=== PATIENT | female | born 1995 | race Caucasian/White ===

== ENCOUNTER 2016-03-11 16:36 | Emergency (ER) | payer SELFPAY ==
[2016-03-11 17:01] VITALS: BP 125/86; PULSE 85; RESP 16; TEMP 98.1; O2SAT 96
== END 2016-03-11 17:01 | disposition left against medical advice (07) ==
DX: Z53.21 Procedure and treatment not carried out due to patient leaving prior to being seen by health care provider (principal)

== ENCOUNTER 2016-11-30 19:22 | Emergency (ER) | payer OTHER ==
[2016-11-30 19:34] VITALS: TEMP 98.1
--- NOTE | 2016-11-30 19:42 | EDPHY ---
H & P Stated Complaint: spotting and 2/3 preg tests + HPI/ROS: CHIEF COMPLAINT: Spotting, 6 days late for menstrual period HISTORY OF PRESENT ILLNESS: The patient is a 21 y/o female complaining of one episode of spotting this morning. She is currently 6 days late for her menstrual period; she is normally regular with her periods. She took 3 tests, the first two were positive, but the last one she took yesterday was negative. She also has lower abdominal soreness, but this is not like her normal menstrual cramps. She was also nauseous earlier and felt faint. Davide control use.Denies alcohol or tobacco use. Denies dysuria, polyuria, shortness of breath, chest pain. REVIEW OF SYSTEMS: A ten point review of systems was performed and is negative with the exception of the items mentioned in the HPI. Past medical history: Denies Past surgical history: Denies Family history: Noncontributory Social history: Friend at bedside Student at [employer] Lives in [place] General Appearance: Alert. Vital signs reviewed. Blood pressure 93/74. Eyes: Pupils equal and round, no conjunctival injection, no discharge. Anicteric. ENT, Mouth: Mucous membranes are moist, no oropharyngeal erythema or edema. Neck: No lymphadenopathy, supple. Respiratory: Lungs are clear to auscultation; no wheezes, rales, or rhonchi. Cardiovascular: Regular rate and rhythm; no murmur, rub, or gallop. Gastrointestinal: Mild LLQ tenderness. No guarding. Abdomen is soft, no masses or organomegaly, bowel sounds normal. Skin: Warm and dry, no rashes on exposed skin, normal color. Back: Nontender to palpation over the thoracolumbar spine. No CVAT. Extremities: No lower extremity edema, no calf tenderness or swelling. Neurological: Alert and oriented. Moving all four extremities easily and equally. Psychiatric: Normal affect. - Personal History LMP (Females 10-55): Over 28 Days Ago Current Tetanus/Diphtheria Vaccine: Yes Current Tetanus Diphtheria and Acellular Pertussis (TDAP): Yes - Medical/Surgical History Hx Asthma: No Hx Chronic Respiratory Disease: No Hx Diabetes: No Hx Cardiac Disease: No Hx Renal Disease: No Hx Cirrhosis: No Hx Alcoholism: No Hx HIV/AIDS: No Hx Splenectomy or Spleen Trauma: No Other PMH: PMH: denies - Social History Smoking Status: Never smoked Constitutional: Initial Vital Signs Temperature (C) 36.7 C 11/30/16 19:30 Heart Rate 78 11/30/16 19:30 Respiratory Rate 18 11/30/16 19:30 Blood Pressure 93/74 L 11/30/16 19:30 O2 Sat (%) 98 11/30/16 19:30 O2 Delivery Mode Room Air Allergies/Adverse Reactions: Sulfa (Sulfonamide Antibiotics) Allergy (Verified 03/11/16 16:59) Home Medications: Medication Instructions Recorded NK [No Known Home Meds] 03/11/16 Medical Decision Making ED Course/Re-evaluation: The patient is a 21 y/o female presenting with one episode spotting earlier today. She is 6 days late for her menstrual period and had 2 positive and 1 negative home tests. On exam she has mild LLQ tenderness. CBC and BHCG ordered. CBC normal. BHcg negative. Results relayed to patient. We discussed using control and safe sex, as she does not desire a at this time. She is referred for primary care. Differential Diagnosis: I considered a differential diagnosis that includes but is not limited to early , ectopic , menses, and urinary tract infection. - Data Points Laboratory Results: Laboratory Results 11/30/16 19:50 Departure - Departure Disposition: Home, Routine, Self-Care Clinical Impression: Menstrual period late Condition: Good Instructions: Dysmenorrhea (ED) Additional Instructions: Your blood test is negative. You will likely start your period soon. If you have severe pain, any concerning symptoms, you should be re-evaluated. I am [facility] in case you need [facility] care. Referrals: Papa López MD [Medical Doctor] - As per Instructions Report Scribed for: Asia Brownlee Report Scribed by: Parvin Gilliland Date of Report: 11/30/16 Time of Report: 19:53 Physician Review and Approval Statement: 11/30/16 19:41 Portions of this note were transcribed by the vice president medical affairs. I, Dr. Asia Brownlee, personally performed the history, physical exam, and medical decision- making; and confirmed the accuracy of the information in the transcribed note.
[2016-11-30 20:05] LABS: % IMMATURE GRANULYOCYTES 0.5 % (0.0-1.1); ABSOLUTE IMMATURE GRANULOCYTES 0.04 10^3/uL (0.00-0.10); ADD DIFF? NO; ADD MORPH? NO; ADD SCAN? NO; ATYPICAL LYMPHOCYTE FLAG 0 (0-99); FRAGMENT RBC FLAG 0 (0-99); HEMATOCRIT 40.1 % (38.0-47.0); HEMOGLOBIN 14.5 g/dL (12.6-16.3); LEFT SHIFT FLG 0 (0-99); LIPEMIA HEMOLYSIS FLAG 90 (0-99); MEAN CELL HEMOGLOBIN 32.5 pg (27.9-34.1); MEAN CELL HEMOGLOBIN CONCENTR. 36.2 g/dL (32.4-36.7); MEAN CELL VOLUME 89.9 fL (81.5-99.8); MEAN PLATELET VOLUME 10.4 fL (8.7-11.7); PLATELET CLUMPS FLAG 10 (0-99); PLATELET COUNT 247 10^3/uL (150-400); RED BLOOD CELL COUNT 4.46 10^6/uL (4.18-5.33); RED CELL DISTRIBUTION WIDTH 12.2 % (11.5-15.2)
[2016-11-30 20:50] VITALS: BP 95/77; PULSE 81; RESP 16; O2SAT 96
== END 2016-11-30 20:50 | disposition home or self-care (01) ==
DX: N92.6 Irregular menstruation, unspecified (principal)